=== PATIENT | female | born 1975 | race Two or more races ===

== ENCOUNTER → 2020-07-04 | Outpatient (CLI) | payer SELFPAY ==
--- NOTE | 2020-07-04 | CER_PTH ---
PATIENT: HARSH CROW LOC: [facility] U#:[id number] AGE/SX: 45/F ROOM: RE07/04/[address]: Dr. Klaudia Sheridan, : 1975 BED: DIS: 07/04/2020 SPEC #: [id number] RECD: 07/04/20 17:29 STATUS: JAI ANDREY #: [id number] KELLY: 07/04/20 00:[address]: Klaudia Sheridan DEPT: SURGICAL PATHOLOGY RECD BY: Juan José Lopez Tissues: Uterine cervix, NOS Procedures: Surgery Specimen Level IV HEADER OPERATION: Removal cervical polyp PRE-OP DIAGNOSIS: Cervical polyp TISSUE SUBMITTED: Cervical polyp MICROSCOPIC DIAGNOSIS Cervical polyp, biopsy: Consistent with fragments of inflamed benign endocervical polyp. See microscopic description. EVER:gissell 07/06/2020 MICROSCOPIC DESCRIPTION Slides are reviewed. The specimen consists of multiple polypoid fragments of benign endocervical mucosa with acute and chronic inflammation and squamous metaplasia, consistent with fragments of benign inflamed endocervical polyp. A minute fragment of benign endometrial tissue is also noted and may represent lower uterine segment tissue. GROSS DESCRIPTION Received in fixative is one container labeled with the patient's name and designated cervical polyp. The specimen consists of multiple irregular fragments of hemorrhagic soft tissue mixed with mucoid tissue that in aggregate measure 2 x 1.5 x 0.3 cm. The specimen is totally submitted in one cassette. / EVER:gissell 07/05/20 TC:5 [facility]: [id number]
[2020-07-11 10:53] LABS: HPV APTIMA, High Risk Negative (Negative)
== END | disposition home or self-care (01) ==
LOC: LABSPEC 16:21
PROVIDERS: Visit Provider Student in an Organized Health Care Education/Training Program
DX: N84.1 Polyp of cervix uteri (principal); Z12.4 Encounter for screening for malignant neoplasm of cervix
CPT/HCPCS: 87624; 88175; 88305; G0145